=== PATIENT | male | born 1980 | race Caucasian/White ===

== ENCOUNTER 2023-05-23 15:37 | Inpatient (IN) | payer MEDICAID, SELFPAY ==
[2023-05-23 15:44] VITALS: BP 153/83; PULSE 69; RESP 18; TEMP 37.2; O2SAT 96; BMI 28.0
--- NOTE | 2023-05-23 15:45 | ED_ITS ---
HPI - General Adult General Chief complaint: Psychiatric Symptoms Stated complaint: suicidal thoughts Time Seen by Provider: 05/23/23 16:44 Source: patient Mode of arrival: ambulatory Limitations: no limitations History of Present Illness HPI narrative: 42-year-old male with a history of depression, anxiety, bipolar 2, PTSD, ADHD who presents emergency department for evaluation of suicidal ideation and the feeling that he wants to hurt other people. The patient states that he has a history of fentanyl and heroin use disorder, he states that he was using these drugs IV , intranasally and occasionally smoking them. He states that he got into a treatment program 03/27/2023 and since that time he has not used any drugs or drank alcohol. He states that he was placed on psychiatric medications after got out of the treatment program. Patient states that he was feeling suicidal and he was admitted to a treatment program and [place] from 05/14/2023 until 05/19/2023. He states the medications that he was placed on are not making him feel better and he still feels suicidal. He states that he has not homicidal but he feels like he is angry and he wants to hurt other people. He states he does not have a suicide plan or plan to hurt specific people but states that he has gotten in a lot of fights and he feels like he needs to get into another fight. He states he does feel congested but he denied fever, chills, sore throat, cough, chest pain or shortness of breath. Related Data Allergies Allergy/AdvReac Type Severity Reaction Status Date / Time bee pollen [bee stings] Allergy Hives Verified 05/23/23 15:44 promethazine [From Phenergan] AdvReac Seizure Verified 05/23/23 15:44 Review of Systems 2 Review of Systems: Yes all other systems are reviewed and are negative [facility] Past Medical History [facility] Narrative: Social history: He states he is currently living in [place] and a a[facility] based treatment program for his addiction. He does smoke cigarettes. He denies alcohol and drug use since 03/22/2023. Social History Social History Advance Directives: No Advance Directives Information Provided: Yes Healthcare Proxy: No Guardian: No Physical Exam ED Vital Signs: Vital Signs - 24 hr 05/23/23 15:44 05/23/23 20:00 05/23/23 23:46 Temperature 98.9 F 97.9 F Pulse Rate 69 72 62 Respiratory Rate 18 18 20 Blood Pressure 153/83 H 148/88 H 114/65 Pulse Oximetry 96 98 98 Oxygen Delivery Method Room Air Room Air 05/24/23 06:06 Temperature Pulse Rate 64 Respiratory Rate 16 Blood Pressure 111/56 L Pulse Oximetry 98 Oxygen Delivery Method Room Air BMI result Body Mass Index 28.0 Vital signs did reveal an elevated blood pressure of 153/83 Exam General: Awake, alert in no distress Head: Normocephalic, atraumatic EENT: PERRL, Lids normal, sclera normal, conjunctiva normal, nose normal , ears normal, throat without erythema or exudates Neck: Supple, no adenopathy Lung: breath sounds symmetric, no wheezing, rales or rhonchi Chest: symmetric movement, nontender Heart: regular rate and rhythm, normal S1, S2 no murmurs or rubs Abdomen: soft, non-tender, nondistended, normal bowel sounds Back: no vertebral tenderness, no CVAT Extremities: no deformities, moves all extremities symmetrically Neuro: Awake, alert, oriented, normal speech, cranial nerves intact, moves all extremities symmetrically Psych: Pleasant, cooperative, anxious Course Course Course Narrative: RME: 42 yold male presents to the ED feeling suicidal. Patient states taking his psych meds. labs care team ordered. Care team ordered Reevaluation(s) Reevaluation #1: Continue physician observation, VSS, no events overnight, care team evaluation is appreciated and bed search is underway, we will keep patient under section 12. Time: 00:25 Medications Administered Discontinued Medications Generic Name Dose Route Start Last Admin Trade Name Georgiana PRN Reason Stop Dose Admin Ibuprofen 400 mg 05/23/23 18:07 05/23/23 18:17 Ibuprofen 400 Mg Tablet PO 05/23/23 18:08 400 mg ONCE ONE Administration Ibuprofen 600 mg 05/24/23 00:25 05/24/23 00:37 Ibuprofen 600 Mg Tablet PO 05/24/23 00:26 600 mg ONCE ONE Administration Lorazepam 2 mg 05/23/23 17:14 05/23/23 18:03 Lorazepam 1 Mg Tablet PO 05/23/23 17:15 2 mg ONCE STA Administration Lorazepam 2 mg 05/24/23 00:25 05/24/23 00:37 Lorazepam 1 Mg Tablet PO 05/24/23 00:26 2 mg ONCE ONE Administration Trazodone HCl 100 mg 05/24/23 00:25 05/24/23 00:37 Trazodone Hcl 100 Mg Tablet PO 05/24/23 00:26 100 mg ONCE ONE Administration Medical Decision Making Medical Decision Making MDM Narrative: 42-year-old male with a history of depression, anxiety, bipolar 2, PTSD, ADHD who presents emergency department for evaluation of suicidal ideation and the feeling that he wants to hurt other people. Patient was recently hospitalized from 05/14 until 05/19/2023 and [place] for suicidal ideation. He states that since being discharged, he has not been feeling well on his new medications and he is still suicidal and has a desire to get into a fight and hurt people. Patient denies any drug use or alcohol use. He states he has been congested but otherwise has no other symptoms. Exam was unremarkable. Following evaluation was ordered: CBC, CMP, COVID 19, drug screen urine, ethanol level, urinalysis. Patient was treated with the following: One-to-one observation, Ativan 2 mg orally Differential diagnosis: Suicidal ideation, homicidal ideation, depression, anxiety, electrolyte abnormalities, anemia 23:06 Start physician observation: My independent interpretation patient's laboratory evaluation is as follows: WBC low 4500, normocytic anemia with an H&H of 12.7 and 38.1. Glucose elevated 155. Urinalysis negative. Ethanol below detectable limits. Urine tox screen negative. COVID-19 was negative. Patient is medically cleared for care team evaluation. The patient will be kept in physician observation until disposition can be determined by care team or until his symptoms improve over time. At the end of my shift, patient's care was turned over to my colleague, Dr. Barreto. Admission/Observation Consideration of admission/observation: Escalation of care including admission/observation considered Lab Data 05/23/23 17:33 05/23/23 17:33 Labs: Lab Results 05/23/23 05/23/23 Range/Units 17:33 17:37 WBC 4.5 L (4.8-10.8) X10*3/uL RBC 4.42 L (4.60-5.80) X10*6/uL Hgb 12.7 L (14.0-18.0) g/dl Hct 38.1 L (42.0-52.0) % MCV 86.2 (80.0-98.0) fL MCH 28.7 (27.0-33.0) pg MCHC 33.3 (31.0-36.0) g/dl RDW 12.4 (11.0-16.0) % Plt Count 208 (160-400) X10*3/uL MPV 9.7 (9.4-12.4) fL Immature Gran % (Auto) 0.2 (0.0-0.4) % Neut % (Auto) 46.0 (45-73) % Lymph % (Auto) 40.9 H (20-40) % [place] % (Auto) 8.2 (2-11) % Eos % (Auto) 3.8 (0-4) % Baso % (Auto) 0.9 (0-2) % Lymph # (Auto) 1.9 (1.2-4.9) X10*3/uL [place] # (Auto) 0.4 (0.1-1.2) X10*3/uL Eos # (Auto) 0.2 (0.0-0.4) X10*3/uL Baso # (Auto) 0.0 (0.0-0.2) X10*3/uL Abs Immat Gran (auto) 0.01 (0.00-0.03) X10*3/uL Absolute Neuts (auto) 2.1 (2.0-8.3) x10*3/uL Absolute Nucleated RBC 0.000 (0.0-0.012) X10*3/uL Nucleated RBC % (auto) 0.0 (0.0-0.2) /100WBC Sodium 142 (135-145) mmol/L Potassium 3.5 (3.3-5.1) mmol/L Chloride 103 (96-108) mmol/L Carbon Dioxide 27 (22-29) mmol/L Anion Gap 16 (12-20) BUN 10 (9-16) mg/dL Creatinine 0.88 (0.5-1.4) mg/dL Estim Creat Clear Calc 121.3 Estimated GFR > 60 Random Glucose 155 H (60-115) mg/dL Calcium 9.4 (8.4-10.2) mg/dL Total Bilirubin 0.6 (0.0-1.0) mg/dL AST 25 (5-37) U/L ALT 29 (0-40) U/L Alkaline Phosphatase 67 (39-117) U/L Total Protein 6.5 (6.5-8.0) g/dL Albumin 4.2 (3.5-5.0) g/dL Urine Color Yellow Urine Appearance Clear Urine pH 6.0 (5.0-9.0) Ur Specific [place] 1.015 (1.005-1.025) Urine Protein Negative (Neg-Trace) mg/dL Urine Glucose (UA) Negative (Negative) mg/dL Urine Ketones Negative (Negative) mg/dL Urine Blood Negative (Negative) Urine Nitrite Negative (Negative) Ur Leukocyte Esterase Negative (Negative) Urine Opiates Screen Not Detected (Not Detect) Urine Fentanyl Screen Not Detected (Not Detect) Ur Barbiturates Screen Not Detected (Not Detect) Ur Phencyclidine Scrn Not Detected (Not Detect) Ur Amphetamines Screen Not Detected (Not Detect) U Benzodiazepines Scrn Not Detected (Not Detect) Urine Cocaine Screen Not Detected (Not Detect) U Marijuana (THC) Screen Not Detected (Not Detect) Ethyl Alcohol < 10 mg/dL COVID-19 ([facility]) Negative (Negative) COVID-19 Clin Com See Note Chronic Conditions Patient?s care impacted by: Other (Depression, anxiety, PTSD) Discharge Plan Discharge Clinical Impression: Suicidal ideation Patient Disposition: Still a Patient Interventions: [place]-Suicide Risk Severity Scale Last Done: 05/23/23 23:47
[2023-05-23 17:46] LABS: MANUAL DIFF FLAG NO
[2023-05-23 17:49] LABS: Basophils Percent Auto 0.9 % (0-2); Eosinophils Absolute Auto 0.2 X10*3/uL (0.0-0.4); Eosinophils Percent Auto 3.8 % (0-4); Hematocrit 38.1 % (42.0-52.0); Hemoglobin 12.7 g/dl (14.0-18.0); Imm Gran Abs Auto 0.01 X10*3/uL (0.00-0.03); Imm Gran Pct Auto 0.2 % (0.0-0.4); Lymphocytes Absolute Auto 1.9 X10*3/uL (1.2-4.9); Lymphocytes Percent Auto 40.9 % (20-40); Mean Corpuscular HGB Conc 33.3 g/dl (31.0-36.0); Mean Corpuscular Hemoglobin 28.7 pg (27.0-33.0); Mean Corpuscular Volume 86.2 fL (80.0-98.0); Mean Platelet Volume 9.7 fL (9.4-12.4); Monocytes Absolute Auto 0.4 X10*3/uL (0.1-1.2); Monocytes Percent Auto 8.2 % (2-11); Neutrophils Absolute Auto 2.1 x10*3/uL (2.0-8.3); Platelet Count 208 X10*3/uL (160-400); Red Blood Count 4.42 X10*6/uL (4.60-5.80); Red Cell Distribution Width 12.4 % (11.0-16.0); White Blood Count 4.5 X10*3/uL (4.8-10.8)
[2023-05-23 18:02] LABS: COVID-19 Test Negative (Negative); IDNOW Serial# 9DB6401D
[2023-05-23] MEDS: LORazepam 1 MG TABLET 2 MG PO (18:03)
[2023-05-23 18:07] LABS: Alanine Aminotransferase 29 U/L (0-40); Albumin Level 4.2 g/dL (3.5-5.0); Alkaline Phosphatase 67 U/L (39-117); Anion Gap 16 (12-20); Aspartate Amino Transferase 25 U/L (5-37); Bilirubin Total 0.6 mg/dL (0.0-1.0); Blood Urea Nitrogen 10 mg/dL (9-16); Calcium 9.4 mg/dL (8.4-10.2); Carbon Dioxide 27 mmol/L (22-29); Chloride 103 mmol/L (96-108); Creatinine Clr Calc Pharmacy 121.3; Estimated Glomerular Filt Rate > 60; Ethanol < 10 mg/dL; Glucose Random 155 mg/dL (60-115); Potassium 3.5 mmol/L (3.3-5.1); Sodium 142 mmol/L (135-145); Total Protein 6.5 g/dL (6.5-8.0)
[2023-05-23] MEDS: Ibuprofen 400 MG TABLET PO (18:17)
--- NOTE | 2023-05-23 18:19 | PC.NURSE ---
pt medicated per MAR for 6/10 back pain. pt providing urine sample
[2023-05-23 18:30] LABS: Appearance Urine Clear; Color Urine Yellow; Glucose Urine UA Negative (Negative); Leukocyte Esterase Urine Negative (Negative); Nitrite Urine Negative (Negative); Specific Gravity - Urine 1.015 (1.005-1.025); Urine Blood Negative (Negative); Urine Ketones Negative (Negative); Urine Protein Negative (Neg-Trace)
[2023-05-23 18:37] LABS: Amphetamine Screen Urine Not Detected (Not Detect); Barbiturates, Urine Not Detected (Not Detect); Benzodiazepines Screen Urine Not Detected (Not Detect); Cannabinoid Screen Urine Not Detected (Not Detect); Cocaine Screen Urine Not Detected (Not Detect); Fentanyl, urine Not Detected (Not Detect); Opiate Screen Urine Not Detected (Not Detect); Phencyclidine Screen Urine Not Detected (Not Detect)
[2023-05-23 20:00] VITALS: BP 148/88; PULSE 72; RESP 18; O2SAT 98
--- NOTE | 2023-05-23 20:05 | PC.NURSE ---
Assumed care of pt. Pt lying on stretcher, eyes closed, no acute distress noted. Sitter at bedside for safety. PLan for CARE team evaluation.
[2023-05-23 23:46] VITALS: BP 114/65; PULSE 62; RESP 20; TEMP 36.6; O2SAT 98
[2023-05-24] MEDS: traZODone HCL 100 MG TABLET PO (00:37)
[2023-05-24] MEDS: Ibuprofen 600 MG TABLET PO (00:37)
[2023-05-24] MEDS: LORazepam 1 MG TABLET 2 MG PO ×2 (00:37→14:31)
[2023-05-24 06:06] VITALS: BP 111/56; PULSE 64; RESP 16; O2SAT 98
[2023-05-24 11:53] VITALS: BP 112/57; PULSE 82; RESP 18; TEMP 36.8; O2SAT 96
--- NOTE | 2023-05-24 12:14 | MHC.CARE ---
RAD Team conducted statewide bedsearch, referral being reviewed by Steve Goldstein [place], and [facility]. RAD team to f/u with facilities to see outcome
--- NOTE | 2023-05-24 12:31 | MHC.CARE ---
Pt accepted to [facility] for 2pm today Accepting Doctor is Dr Laurie Cancino Address is [address] [place] [address] Rd, [facility] [id number]
--- NOTE | 2023-05-24 12:34 | PHA.MEDREC ---
Pharmacy Consult ? Medication Reconciliation Pharmacy has completed the medication reconciliation. Spoke to patient, he has the list of meds from treatment facility in [place], said the last dose was probably on 05/19/23.
[2023-05-24] MEDS: OLANZapine 5 MG TABLET PO (14:03)
[2023-05-24] MEDS: Gabapentin 600 MG TABLET PO ×2 (14:03→19:27)
[2023-05-24] MEDS: traZODone HCL 25 MG HALFTAB PO (14:03)
[2023-05-24] MEDS: Nicotine 14 MG PATCH.TD24 TRANSDERMA (14:03)
[2023-05-24] MEDS: Buprenorphine/Naloxone 12/3 mg FILM 1 FILM SUBLINGUAL (14:54)
--- NOTE | 2023-05-24 15:27 | PC.NURSE ---
Patient has been calm and cooperative while in the pod, no apparent distress noted. Pt does endorse SI without a plan at this time. Offers no complaints to this RN. Medications ordered by MD Cody and administered per MAR
[2023-05-24 17:38] VITALS: PULSE 69; RESP 16; O2SAT 96
--- NOTE | 2023-05-24 17:39 | PC.NURSE ---
Patient observer called this RN over to check on pt, patient appears to be sleeping with eyes open, respirations are equal and unlabored, patient is slightly difficult to arouse but did wake up when this RN moved his foot around. Pt immediately fell back asleep. Vital signs are within normal limits without issue, MD Kennedy is aware and has not come to see patient at this time. Pt received Zyprexa and Ativan earlier in the day without issue. Pt was alert and oriented x4, awake, speaking in clear full sentences prior to medications
[2023-05-24 19:45] VITALS: BP 128/66; PULSE 62; RESP 18; TEMP 36.4; O2SAT 99
--- NOTE | 2023-05-24 22:46 | MHC.CARE ---
RAD Team conducted statewide bedsearch, referral being reviewed by Gurjit Goldstein [place], [facility] and [facility]. RAD team to f/u with facilities to see outcome
[2023-05-25] MEDS: hydrOXYzine HCL 25 MG TABLET PO ×2 (01:08→14:16)
[2023-05-25 05:16] VITALS: BP 124/70; PULSE 75; RESP 18; TEMP 36.5; O2SAT 99
[2023-05-25] MEDS: Omeprazole 20 MG CAPSULE.DR PO (05:39)
--- NOTE | 2023-05-25 06:45 | PC.NURSE ---
Patient slept through the night, no distress observed/reported, no behavior concerns, disposition per care team is section 12 inpatient bed search, medication compliant, will continue to monitor.
[2023-05-25] MEDS: Gabapentin 600 MG TABLET PO ×3 (07:47→20:55)
[2023-05-25] MEDS: OLANZapine 5 MG TABLET PO (07:47)
[2023-05-25] MEDS: Buprenorphine/Naloxone 12/3 mg FILM 1 FILM SUBLINGUAL ×2 (07:47→17:20)
[2023-05-25] MEDS: Nicotine 14 MG PATCH.TD24 TRANSDERMA (07:47)
--- NOTE | 2023-05-25 08:01 | ECG_ITS ---
Test Reason : qt interval Blood Pressure : / mmHG Vent. Rate : 068 BPM Atrial Rate : 068 BPM P-R Int : 156 ms QRS Dur : 098 ms QT Int : 396 ms P-R-T Axes : 044 026 017 degrees QTc Int : 421 ms Normal sinus rhythm Incomplete right bundle branch block Borderline ECG No previous ECGs available Referred By: Skylar Barreto Electronically Signed By:HALEY ARGUETA MD
[2023-05-25 08:32] LABS: COVID-19 Test Negative (Negative); IDNOW Serial# 08D9AD1C
--- NOTE | 2023-05-25 10:01 | PC.NURSE ---
pleasant and cooperative, ate breakfast, did some stretching and exercises in his room, medicated as ordered
[2023-05-25] MEDS: Baclofen 10 MG TABLET PO ×2 (14:16→20:55)
[2023-05-25] MEDS: Acetaminophen 325 MG TABLET 650 MG PO (14:16)
[2023-05-25 14:43] VITALS: BP 123/86; PULSE 71; RESP 18; TEMP 36.1; O2SAT 96
[2023-05-25 14:56] VITALS: BMI 28.2
--- NOTE | 2023-05-25 16:25 | PC.ADMIT ---
Pt is a 42 yr old , Nepali speaking male who arrived on M3 from the ED POD on 05/25/23 at 1440 via wheelchair. He was brought in to the ED due to suicidal ideation and increased depression. He states, per the intake, that the precipitant was due to new medications he was put on after leaving [facility]. He was cooperative but had an irritable edge stating he was lied to by Care Team as to the process and transition from ED to [facility]. He was otherwise calm and cooperative with skin check by DELANEY and Chance BRADFORD. He presents as flat and irritable about admission process but otherwise pleasant. He appears to have some suspicion and confusion regarding medications and other people on the unit stating I feel unsafe here, there are too many people and I don't want a roommate. He otherwise denied current SI/HI/AVH and reports being able to seek out staff if these thoughts shall occur. He reports increased anxiety related to being admitted. He signed a CV and immediately signed a 3 day. He reports recent weight loss of 50 lbs without trying and poor appetite due to depression. He also reports poor sleep without cause. His tox screen was negative for all substances but has a h/o IVDU including crack and fentanyl, which he is on suboxone maintenance for. He reports chronic back pain with relief from Baclofen and Ibuprofen. He was placed on 15 minute checks for safety.
[2023-05-25 20:00] VITALS: BP 141/65; PULSE 74; RESP 16; TEMP 36.5; O2SAT 97
[2023-05-25] MEDS: OLANZapine 10 MG TABLET PO (20:54)
[2023-05-25] MEDS: traZODone HCL 50 MG TABLET PO (20:55)
[2023-05-25 21:25] VITALS: BP 130/84
[2023-05-26 07:10] VITALS: BP 120/77; PULSE 70; TEMP 36.4; O2SAT 97
[2023-05-26] MEDS: Nicotine 14 MG PATCH.TD24 TRANSDERMA (08:24)
[2023-05-26] MEDS: Gabapentin 600 MG TABLET PO ×3 (08:25→21:17)
--- NOTE | 2023-05-26 08:25 | P.HPPS_ITS ---
HPI Date of Service: 05/26/23 Chief Complaint: SI Sources of Information: patient interviewed, chart reviewed and crisis/core team assessment reviewed HPI Subjective Notes: Del Cid Warning and Conditional Voluntary Narrative: Mr. Sarmiento is a 42 year-old male with hx of substance use and psychosis. He initially presented from dual dx [facility] reporting increase depression and suicidal ideation. Utox was negative. On the unit, pt presented as more hypervigilant irritable that appear to be related to underlying paranoid delusions. Pt reports he does not feel safe here, feels this unit is too open and anyone can come in. He does not know if he can trust people here and the medications, although same names, look different. He reports feeling weird which he also suspects is because of either the medications or food that he has been given here. He signed a 3 day notice. He denies SI/HI. He reports he feels comfortable returning to the program if they do accept him back. He has been there just a few days. Past Psychiatric History: Inpt: pt reports many in the past. He was recently discharged from [place], [place] on 05/19/23. OP: none Past trials: olanzapine, vraylar Medical Evaluation Reviewed: Yes [facility] Social History: not working. He is originally from [place] Substance History: opioid use on and off for several years. He is currently on suboxone. He reports he has not used this month. Trauma History: did not want to talk about it Diagnostics Vital Signs (24Hr): Vital Signs - 24 hr 05/25/23 14:43 05/25/23 20:00 05/25/23 21:25 Temperature 97.0 F 97.7 F Pulse Rate 71 74 Respiratory Rate 18 16 Blood Pressure 123/86 141/65 H 130/84 Pulse Oximetry 96 97 Oxygen Delivery Method Room Air Room Air 05/26/23 07:10 Temperature 97.5 F Pulse Rate 70 Respiratory Rate Blood Pressure 120/77 Pulse Oximetry 97 Oxygen Delivery Method Room Air BMI result Body Mass Index 28.2 Labs 05/23/23 17:33 05/26/23 08:21 Labs: Laboratory Results - last 48 hr 05/25/23 08:11 COVID-19 ([facility]) Negative COVID-19 Clin Com See Note Meds/Allergies Meds Home Medications Medication Instructions Recorded Confirmed Type baclofen 10 mg tablet 10 mg PO BID PRN Muscle Spasm 05/24/23 05/24/23 History buprenorphine 12 mg-naloxone 3 mg 1 film buccal BID 05/24/23 05/24/23 History sublingual film (Suboxone) cholecalciferol (vitamin D3) 25 25 mcg PO DAILY 05/24/23 05/24/23 History mcg (1,000 unit) tablet gabapentin 600 mg tablet 600 mg PO TID 05/24/23 05/24/23 History hydroxyzine HCl 25 mg tablet 25 mg PO BID PRN Anxiety 05/24/23 05/24/23 History ibuprofen 800 mg tablet 800 mg PO TID PRN Pain 05/24/23 05/24/23 History multivitamin 1 tab PO DAILY 05/24/23 05/24/23 History nicotine 14 mg/24 hr daily 1 patch transdermal DAILY 05/24/23 05/24/23 History transdermal patch olanzapine 5 mg tablet 5 mg PO DAILY 05/24/23 05/24/23 History pantoprazole 40 mg tablet,delayed 40 mg PO DAILY 05/24/23 05/24/23 History release trazodone 50 mg tablet 25 mg PO BEDTIME 05/24/23 05/25/23 History Allergies Allergies Allergy/AdvReac Type Severity Reaction Status Date / Time bee pollen [bee stings] Allergy Hives Verified 05/23/23 15:44 promethazine [From Phenergan] AdvReac Seizure Verified 05/23/23 15:44 Mental Status Exam Mental Status Exam Narrative: Appearance: wearing casual clothing, good hygiene, in NAD Behavior: guarded and suspicious of this narrative writer Psychomotor: no agitation or retardation noted Speech: clear, normal rate/rhythm/volume, spontaneous TP: linear TC: suspicious, not feeling safe here on this unit Mood: good Affect: hypervigilant, paranoid SI: denies HI: denies VH/AH: appears internally preoccupied although he denies Delusions: paranoid delusions Insight/judgment: poor x 2. Memory/cog: alert, oriented x 3. Assessment & Plan Assessment & Plan (1) Psychosis: Status: Acute Code(s): F29 - Unspecified psychosis not due to a substance or known physiological condition (2) Opioid use disorder, moderate, in early remission, on maintenance therapy, dependence: Status: Acute Code(s): F11.21 - Opioid dependence, in remission Plan Mr. Sarmiento is a 42 year-old male with hx of substance use disorder in early remission, who is not known to our unit. He initially presented from [facility], a dual dx residential treatment program, due to depression and suicidal ideation. As interview goes on, pt is paranoid and hypervigilant. We discussed risks, benefits and alternative treatment options. He is currently on olanzapine, but also reports feeling very sleepy. We discussed lowering gabapentin, given that he is also on suboxone BID and switching to risperidone as it may have less sedation and may be more effective for underlying psychosis and delusions. Collateral information from [facility] where apparently he also presented with psychosis and paranoid delusions. 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 PLAN 1. Admit to M3, CV, 15 minutes checks for safety 2. switch olanzapine to risperidone 2mg po qhs. decrease gabapentin from 600mg po TID to bedtime, adjust as needed. 3. obtain collateral information 4. aftercare planning. Patient educated on: diagnosis, medication risk/benefits and substance abuse Reason for continued inpatient stay Substantial Risk for: inability to function Statement Statement: I have reviewed the history and physical and performed a pertinent examination on my patient. No changes have occurred unless specified. If the History and Physical was not performed prior to admission, the Hospitalist's service will be consulted for completing the admission physical. Time Spent With Patient Time: Total time managing care of this patient today ____ minutes.
[2023-05-26] MEDS: Ibuprofen 600 MG TABLET PO ×2 (08:28→17:34)
[2023-05-26] MEDS: Buprenorphine/Naloxone 12/3 mg FILM 1 FILM SUBLINGUAL ×2 (08:28→17:24)
[2023-05-26] MEDS: Baclofen 10 MG TABLET PO ×2 (08:28→21:42)
[2023-05-26 08:52] LABS: Estimated Average Glucose 105 mg/dL; Hemoglobin A1c % 5.3 % (<6.0)
[2023-05-26 09:10] LABS: Alanine Aminotransferase 29 U/L (0-40); Albumin Level 4.3 g/dL (3.5-5.0); Alkaline Phosphatase 69 U/L (39-117); Anion Gap 13 (12-20); Aspartate Amino Transferase 23 U/L (5-37); Bilirubin Total 0.4 mg/dL (0.0-1.0); Blood Urea Nitrogen 14 mg/dL (9-16); Calcium 9.5 mg/dL (8.4-10.2); Carbon Dioxide 26 mmol/L (22-29); Chloride 106 mmol/L (96-108); Cholesterol 176 mg/dL (<200); Creatinine Clr Calc Pharmacy 125.9; Estimated Glomerular Filt Rate > 60; Glucose Fasting 84 mg/dL (60-99); HDL Cholesterol 61 mg/dL (>40); LDL Cholesterol Calculated 82 mg/dL (<100); Potassium 4.2 mmol/L (3.3-5.1); Sodium 141 mmol/L (135-145); Total Protein 6.9 g/dL (6.5-8.0); Triglycerides 166 mg/dL (<150)
[2023-05-26 09:25] LABS: Thyroid Stimulating Hormone 2.66 uIU/mL (0.32-4.0)
[2023-05-26 09:44] LABS: Vitamin B12 715 pg/mL (200-900)
--- NOTE | 2023-05-26 10:04 | PC.NURSE ---
Pt refused Flu Vaccine
--- NOTE | 2023-05-26 13:54 | MHC.CLN ---
NUTRITION CONSULT FOR 50# WEIGHT LOSS. REPORTS THAT WEIGHT LOSS DUE TO ADDICTION. HAS BEEN EATING WELL SINCE MARCH. REPORTS THAT EATING WELL HERE. NO NEW NUTRITION INTERVENTIONS.
[2023-05-26 21:00] VITALS: BP 147/77; PULSE 71; RESP 16; TEMP 36.5; O2SAT 97
[2023-05-26] MEDS: risperiDONE 2 MG TABLET PO (21:18)
[2023-05-26] MEDS: traZODone HCL 50 MG TABLET PO (21:42)
[2023-05-27 07:15] VITALS: BP 106/65; PULSE 59; RESP 14; TEMP 36.1; O2SAT 97
[2023-05-27] MEDS: Nicotine 14 MG PATCH.TD24 TRANSDERMA (08:41)
[2023-05-27] MEDS: Buprenorphine/Naloxone 12/3 mg FILM 1 FILM SUBLINGUAL ×2 (08:41→17:20)
--- NOTE | 2023-05-27 12:30 | HO.PSYCHPN ---
Subjective Subjective Date of Service: 05/27/23 Reason For Visit: SI Subjective Notes: Conditional Voluntary Interim History: The nursing staff reported the patient signed a 3 day notice reports that he is anxiety and depression is up and down. On interview the patient denies new symptoms, compliant with current treatment. Mental Status Exam Mental Status Exam Patient Appearance: Well Grooomed and Appropriate Patient Orientation: Person and Situation Level of Consciousness: Awake Patient Behavior: Guarded and Passive Mood Description: Withdrawn Affect Description: Constricted Ability to Follow Directions: Good Speech Pattern: Clear Hallucinations: None Delusions: Not Present Thought Process: Linear Thought Content: positive for [employer] and positive for Poverty of Content Judgement: Fair Diagnostics Vital Signs (24Hr): Vital Signs - 24 hr 05/26/23 21:00 05/27/23 07:15 Temperature 97.7 F 97.0 F Pulse Rate 71 59 Respiratory Rate 16 14 Blood Pressure 147/77 H 106/65 Pulse Oximetry 97 97 Oxygen Delivery Method Room Air Room Air BMI result Body Mass Index 28.2 Labs 05/23/23 17:33 05/26/23 08:21 Labs: Laboratory Results - last 48 hr 05/26/23 08:21 Sodium 141 Potassium 4.2 Chloride 106 Carbon Dioxide 26 Anion Gap 13 BUN 14 Creatinine 0.85 Estim Creat Clear Calc 125.9 Estimated GFR > 60 Fasting Glucose 84 Estimat Average Glucose 105 Hemoglobin A1c % 5.3 Calcium 9.5 Total Bilirubin 0.4 AST 23 ALT 29 Alkaline Phosphatase 69 Total Protein 6.9 Albumin 4.3 Triglycerides 166 H Cholesterol 176 LDL Cholesterol, Calc 82 HDL Cholesterol 61 Vitamin B12 715 TSH 2.66 Medications Medications Current Medications Acetaminophen (Acetaminophen 325 Mg Tablet) 650 mg PO Q6H PRN PRN Reason: Headache/Pain Mild Scale (1-3) Last Admin: 05/25/23 14:16 Dose: 650 mg Al Hydroxide/Mg Hydroxide (Magnesium Hydrox/Alum Hydrox 30 Ml Oral.Susp) 30 ml PO Q6H PRN PRN Reason: Heartburn/Nausea Baclofen (Baclofen 10 Mg Tablet) 10 mg PO BID PRN PRN Reason: Muscle Spasm Last Admin: 05/26/23 21:42 Dose: 10 mg Buprenorphine/Naloxone (Buprenorphine/Naloxone 12/3 Mg Film) 1 film SUBLINGUAL BID@0800,1700 [facility] Last Admin: 05/27/23 08:41 Dose: 1 film Gabapentin (Gabapentin 600 Mg Tablet) 600 mg PO BEDTIME [facility] Last Admin: 05/26/23 21:17 Dose: 600 mg Hydroxyzine HCl (Hydroxyzine Hcl 25 Mg Tablet) 25 mg PO BID PRN PRN Reason: Anxiety Last Admin: 05/25/23 14:16 Dose: 25 mg Ibuprofen (Ibuprofen 600 Mg Tablet) 600 mg PO Q6H PRN PRN Reason: moderate, pain Last Admin: 05/26/23 17:34 Dose: 600 mg Magnesium Hydroxide (Milk Of Magnesia 30 Ml Oral.Susp) 30 ml PO DAILY PRN PRN Reason: Constipation Nicotine (Nicotine 14 Mg Patch.Td24) 14 mg TRANSDERMA DAILY [facility] Last Admin: 05/27/23 08:41 Dose: 14 mg Olanzapine (Olanzapine Odt 10 Mg Tab.Rapdis) 10 mg TRANSLINGU Q6H PRN PRN Reason: agitation Risperidone (Risperidone 2 Mg Tablet) 2 mg PO BEDTIME [facility] Last Admin: 05/26/23 21:18 Dose: 2 mg Trazodone HCl (Trazodone Hcl 50 Mg Tablet) 50 mg PO BEDTIME PRN PRN Reason: Insomnia Last Admin: 05/26/23 21:42 Dose: 50 mg Allergies Allergies Allergy/AdvReac Type Severity Reaction Status Date / Time bee pollen [bee stings] Allergy Hives Verified 05/23/23 15:44 promethazine [From Phenergan] AdvReac Seizure Verified 05/23/23 15:44 Assessment & Plan Assessment & Plan (1) Psychosis: Status: Acute Code(s): F29 - Unspecified psychosis not due to a substance or known physiological condition (2) Opioid use disorder, moderate, in early remission, on maintenance therapy, dependence: Status: Acute Code(s): F11.21 - Opioid dependence, in remission Plan Mr. Sarmiento is a 42 year-old male with hx of substance use disorder in early remission, who is not known to our unit. [facility], a dual [facility] residential treatment program, due to depression and suicidal ideation. As interview goes on, pt is paranoid and hypervigilant. We discussed risks, benefits and alternative treatment options. He is currently on olanzapine, but also reports feeling very sleepy. We discussed lowering gabapentin, given that he is also on suboxone BID and switching to risperidone as it may have less sedation and may be more effective for underlying psychosis and delusions. Collateral information from [facility] where apparently he also presented with psychosis and paranoid delusions. 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 PLAN 1. Admit to M3, CV, 15 minutes checks for safety 2. switch olanzapine to risperidone 2mg po qhs. decrease gabapentin from 600mg po TID to bedtime, adjust as needed. 3. obtain collateral information 4. aftercare planning. Reason for continued inpatient stay Substantial Risk for: inability to function, rapid decompensation and med/psych decompensation Time Spent With Patient Time: Total time managing care of this patient today __20__ minutes.
[2023-05-27] MEDS: hydrOXYzine HCL 25 MG TABLET PO (14:10)
[2023-05-27] MEDS: Baclofen 10 MG TABLET PO (14:10)
[2023-05-27] MEDS: OLANZapine ODT 10 MG TAB.RAPDIS TRANSLINGU (17:24)
[2023-05-27] MEDS: Ibuprofen 600 MG TABLET PO (17:24)
[2023-05-27] MEDS: Gabapentin 600 MG TABLET PO (21:43)
[2023-05-27] MEDS: traZODone HCL 50 MG TABLET PO (21:43)
[2023-05-27] MEDS: risperiDONE 2 MG TABLET PO (21:43)
[2023-05-27 21:44] VITALS: BP 123/75; PULSE 65; RESP 14; TEMP 36.3; O2SAT 97
[2023-05-28 07:40] VITALS: BP 102/55; PULSE 56; RESP 14; TEMP 36.2; O2SAT 97
[2023-05-28] MEDS: Buprenorphine/Naloxone 12/3 mg FILM 1 FILM SUBLINGUAL ×2 (08:21→16:39)
[2023-05-28] MEDS: Nicotine 14 MG PATCH.TD24 TRANSDERMA (08:21)
[2023-05-28] MEDS: Ibuprofen 600 MG TABLET PO (08:37)
--- NOTE | 2023-05-28 15:26 | P.PNPSI_ITS ---
Subjective Subjective Date of Service: 05/28/23 Reason For Visit: SI Subjective Notes: Conditional Voluntary and 3 Day Interim History: The nursing staff reported the patient signed a 3 day notice he reports some anxiety. His mood had been better. He has been talking about the possibility of different treatment options. On interview the patient denies new symptoms, he is willing to work as an outpatient Mental Status Exam Mental Status Exam Patient Appearance: Well Grooomed and Appropriate Patient Orientation: Person, Place, Time and Situation Level of Consciousness: Awake and Appropriate Mood Description: Calm Affect Description: Constricted Patient Cognition Impaired: Yes Ability to Follow Directions: Good Speech Pattern: Clear Hallucinations: None Delusions: Not Present Thought Process: Distracted and Linear Thought Content: positive for [place] and positive for Circumstantial Judgement: Fair Diagnostics Vital Signs (24Hr): Vital Signs - 24 hr 05/27/23 21:44 05/28/23 07:40 Temperature 97.3 F 97.1 F Pulse Rate 65 56 Respiratory Rate 14 14 Blood Pressure 123/75 102/55 L Pulse Oximetry 97 97 Oxygen Delivery Method Room Air Room Air BMI result Body Mass Index 28.2 Labs 05/23/23 17:33 05/26/23 08:21 Medications Medications Current Medications Acetaminophen (Acetaminophen 325 Mg Tablet) 650 mg PO Q6H PRN PRN Reason: Headache/Pain Mild Scale (1-3) Last Admin: 05/25/23 14:16 Dose: 650 mg Al Hydroxide/Mg Hydroxide (Magnesium Hydrox/Alum Hydrox 30 Ml Oral.Susp) 30 ml PO Q6H PRN PRN Reason: Heartburn/Nausea Baclofen (Baclofen 10 Mg Tablet) 10 mg PO BID PRN PRN Reason: Muscle Spasm Last Admin: 05/27/23 14:10 Dose: 10 mg Buprenorphine/Naloxone (Buprenorphine/Naloxone 12/3 Mg Film) 1 film SUBLINGUAL BID@0800,1700 [facility] Last Admin: 05/28/23 08:21 Dose: 1 film Gabapentin (Gabapentin 600 Mg Tablet) 600 mg PO BEDTIME [facility] Last Admin: 05/27/23 21:43 Dose: 600 mg Hydroxyzine HCl (Hydroxyzine Hcl 25 Mg Tablet) 25 mg PO BID PRN PRN Reason: Anxiety Last Admin: 05/27/23 14:10 Dose: 25 mg Ibuprofen (Ibuprofen 600 Mg Tablet) 600 mg PO Q6H PRN PRN Reason: moderate, pain Last Admin: 05/28/23 08:37 Dose: 600 mg Magnesium Hydroxide (Milk Of Magnesia 30 Ml Oral.Susp) 30 ml PO DAILY PRN PRN Reason: Constipation Nicotine (Nicotine 14 Mg Patch.Td24) 14 mg TRANSDERMA DAILY [facility] Last Admin: 05/28/23 08:21 Dose: 14 mg Olanzapine (Olanzapine Odt 10 Mg Tab.Rapdis) 10 mg TRANSLINGU Q6H PRN PRN Reason: agitation Last Admin: 05/27/23 17:24 Dose: 10 mg Risperidone (Risperidone 2 Mg Tablet) 2 mg PO BEDTIME [facility] Last Admin: 05/27/23 21:43 Dose: 2 mg Trazodone HCl (Trazodone Hcl 50 Mg Tablet) 50 mg PO BEDTIME PRN PRN Reason: Insomnia Last Admin: 05/27/23 21:43 Dose: 50 mg Allergies Allergies Allergy/AdvReac Type Severity Reaction Status Date / Time bee pollen [bee stings] Allergy Hives Verified 05/23/23 15:44 promethazine [From Phenergan] AdvReac Seizure Verified 05/23/23 15:44 Assessment & Plan Assessment & Plan (1) Psychosis: Status: Acute Code(s): F29 - Unspecified psychosis not due to a substance or known physiological condition (2) Opioid use disorder, moderate, in early remission, on maintenance therapy, dependence: Status: Acute Code(s): F11.21 - Opioid dependence, in remission Plan Mr. Sarmiento is a 42 year-old male with hx of substance use disorder in early remission, who is not known to our unit. He [facility] presented from [facility], a dual dx residential treatment program, due to depression and suicidal ideation. As interview goes on, pt is paranoid and hypervigilant. We discussed risks, benefits and alternative treatment options. He is currently on olanzapine, but also reports feeling very sleepy. We discussed lowering gabapentin, given that he is also on suboxone BID and switching to risperidone as it may have less sedation and may be more effective for underlying psychosis and delusions. Collateral information from [facility] where apparently he also presented with psychosis and paranoid delusions. 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 PLAN 1. Admit to M3, CV, 15 minutes checks for safety 2. switch olanzapine to risperidone 2mg po qhs. decrease gabapentin from 600mg po TID to bedtime, adjust as needed. 3. obtain collateral information 4. aftercare planning. Reason for continued inpatient stay Substantial Risk for: inability to function, rapid decompensation and med/psych decompensation Time Spent With Patient Time: Total time managing care of this patient today __20__ minutes.
[2023-05-28 20:12] VITALS: BP 136/73; PULSE 73; TEMP 36.6; O2SAT 97
[2023-05-28] MEDS: Gabapentin 600 MG TABLET PO (20:52)
[2023-05-28] MEDS: hydrOXYzine HCL 25 MG TABLET PO (20:52)
[2023-05-28] MEDS: risperiDONE 2 MG TABLET PO (20:52)
[2023-05-28] MEDS: traZODone HCL 50 MG TABLET PO (20:52)
[2023-05-29 07:18] VITALS: BP 124/64; PULSE 71; RESP 16; TEMP 36.6; O2SAT 96
[2023-05-29] MEDS: Buprenorphine/Naloxone 12/3 mg FILM 1 FILM SUBLINGUAL ×2 (08:17→16:58)
[2023-05-29] MEDS: Nicotine 14 MG PATCH.TD24 TRANSDERMA (08:17)
[2023-05-29] MEDS: Ibuprofen 600 MG TABLET PO (09:41)
[2023-05-29] MEDS: Baclofen 10 MG TABLET PO (09:52)
[2023-05-29] MEDS: hydrOXYzine HCL 25 MG TABLET PO (09:52)
--- NOTE | 2023-05-29 19:19 | P.PNPSI_ITS ---
Subjective Subjective Date of Service: 05/29/23 Reason For Visit: SI Interim History: wants sublocade, would like to speak with addiction service on that issue. would like to streamline regimen, agrees to taper off of gabapentin. 3-day up weds, planning to discharge weds. per staff, denies SI. wants to return to [facility] in [place], [place], at discharge. slept 7 hours. not attending groups. Mental Status Exam Mental Status Exam Narrative: Appearance: wearing casual clothing, good hygiene, in NAD Behavior: no PMA/PMR Speech: clear, normal rate/rhythm/volume, spontaneous TP: linear TC: on delusions or paranoia expressed Mood: good Affect: constricted, normo-intense, non-labile SI: none expressed HI: none expressed VH/AH: none expressed Insight/judgment: fair x 2. Memory/cog: alert, oriented x 3. Diagnostics Vital Signs (24Hr): Vital Signs - 24 hr 05/28/23 20:12 05/29/23 07:18 Temperature 97.9 F 97.8 F Pulse Rate 73 71 Respiratory Rate 16 Blood Pressure 136/73 124/64 Pulse Oximetry 97 96 Oxygen Delivery Method Room Air Room Air BMI result Body Mass Index 28.2 Labs 05/23/23 17:33 05/26/23 08:21 Medications Medications Current Medications Acetaminophen (Acetaminophen 325 Mg Tablet) 650 mg PO Q6H PRN PRN Reason: Headache/Pain Mild Scale (1-3) Last Admin: 05/25/23 14:16 Dose: 650 mg Al Hydroxide/Mg Hydroxide (Magnesium Hydrox/Alum Hydrox 30 Ml Oral.Susp) 30 ml PO Q6H PRN PRN Reason: Heartburn/Nausea Baclofen (Baclofen 10 Mg Tablet) 10 mg PO BID PRN PRN Reason: Muscle Spasm Last Admin: 05/29/23 09:52 Dose: 10 mg Buprenorphine/Naloxone (Buprenorphine/Naloxone 12/3 Mg Film) 1 film SUBLINGUAL BID@0800,1700 [facility] Last Admin: 05/29/23 16:58 Dose: 1 film Gabapentin (Gabapentin 600 Mg Tablet) 400 mg PO BEDTIME [facility] Hydroxyzine HCl (Hydroxyzine Hcl 25 Mg Tablet) 25 mg PO BID PRN PRN Reason: Anxiety Last Admin: 05/29/23 09:52 Dose: 25 mg Ibuprofen (Ibuprofen 600 Mg Tablet) 600 mg PO Q6H PRN PRN Reason: moderate, pain Last Admin: 05/29/23 09:41 Dose: 600 mg Magnesium Hydroxide (Milk Of Magnesia 30 Ml Oral.Susp) 30 ml PO DAILY PRN PRN Reason: Constipation Nicotine (Nicotine 14 Mg Patch.Td24) 14 mg TRANSDERMA DAILY [facility] Last Admin: 05/29/23 08:17 Dose: 14 mg Olanzapine (Olanzapine Odt 10 Mg Tab.Rapdis) 10 mg TRANSLINGU Q6H PRN PRN Reason: agitation Last Admin: 05/27/23 17:24 Dose: 10 mg Risperidone (Risperidone 2 Mg Tablet) 2 mg PO BEDTIME [facility] Last Admin: 05/28/23 20:52 Dose: 2 mg Trazodone HCl (Trazodone Hcl 50 Mg Tablet) 50 mg PO BEDTIME PRN PRN Reason: Insomnia Last Admin: 05/28/23 20:52 Dose: 50 mg Allergies Allergies Allergy/AdvReac Type Severity Reaction Status Date / Time bee pollen [bee stings] Allergy Hives Verified 05/23/23 15:44 promethazine [From Phenergan] AdvReac Seizure Verified 05/23/23 15:44 Assessment & Plan Assessment & Plan (1) Psychosis: Status: Acute Code(s): F29 - Unspecified psychosis not due to a substance or known physiological condition (2) Opioid use disorder, moderate, in early remission, on maintenance therapy, dependence: Status: Acute Code(s): F11.21 - Opioid dependence, in remission Plan Mr. Sarmiento is a 42 year-old male with hx of substance use disorder in early remission, who is not known to our unit. He [facility], a dual [facility] residential treatment program, due to depression and suicidal ideation. As interview goes on, pt is paranoid and hypervigilant. We discussed risks, benefits and alternative treatment options. He is currently on olanzapine, but also reports feeling very sleepy. We discussed lowering gabapentin, given that he is also on suboxone BID and switching to risperidone as it may have less sedation and may be more effective for underlying psychosis and delusions. Collateral information from [facility] where apparently he also presented with psychosis and paranoid delusions. 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 PLAN 1. Admit to M3, CV, 15 minutes checks for safety 2. switch olanzapine to risperidone 2mg po qhs. decrease gabapentin from 600mg po TID to bedtime, adjust as needed. 3. obtain collateral information 4. aftercare planning. 05/29: taper gabapentin; decrease from 600 mg to 400 mg tonight. addiction consult for sublocade request. plan for weds DC. appears far less psychotic than at admission. Reason for continued inpatient stay Substantial Risk for: inability to function and rapid decompensation Time Spent With Patient Time: Total time managing care of this patient today _25___ minutes.
[2023-05-29 20:10] VITALS: BP 149/79; PULSE 78; RESP 18; TEMP 37; O2SAT 98
--- NOTE | 2023-05-29 20:20 | MHC.RECOVSUP ---
? Reason for consult Recovery Support o Current location: [address] o Identified substance use concern: Heroin - Support ? Intervention: o Community resources provided o Harm reduction discussion ? Plan: o Patient to follow up with H after discharge ? Additional information: Met with patient and we talk about recovery and Harm reduction.. We talked about the many different pathway of recovery..
[2023-05-29] MEDS: traZODone HCL 50 MG TABLET PO (21:57)
[2023-05-29] MEDS: risperiDONE 2 MG TABLET PO (21:57)
[2023-05-29] MEDS: Gabapentin 400 MG CAPSULE PO (21:57)
[2023-05-30 06:00] VITALS: BP 130/67; PULSE 69; RESP 16; TEMP 36.2; O2SAT 97
[2023-05-30] MEDS: Buprenorphine/Naloxone 12/3 mg FILM 1 FILM SUBLINGUAL ×2 (08:30→16:59)
[2023-05-30] MEDS: Nicotine 14 MG PATCH.TD24 TRANSDERMA (08:31)
[2023-05-30] MEDS: Ibuprofen 600 MG TABLET PO (08:58)
--- NOTE | 2023-05-30 13:16 | P.DS_ITS ---
DS: Providers Provider Date of Service: 05/30/23 Date of admission: 05/25/23 13:48 Primary care physician: None Physician Consults: 05/23/23 15:46 Consult to Care Team Stat Comment: Reason for consultation: SUicidal 05/27/23 18:44 Addiction Medicine Routine Consulting Provider: Addiction Covering Reason for consultation: Patient asking for change suboxone to methadone Has provider been notified: No DS: Diagnosis Discharge Diagnosis (1) Psychosis: Status: Acute (2) Opioid use disorder, moderate, in early remission, on maintenance therapy, dependence: Status: Acute DS: Medications Discharge Medications Home Medications: Home Medications Medication Instructions Recorded Confirmed cholecalciferol (vitamin D3) 25 25 mcg PO DAILY 05/24/23 05/24/23 mcg (1,000 unit) tablet ibuprofen 800 mg tablet 800 mg PO TID PRN Pain 05/24/23 05/24/23 multivitamin 1 tab PO DAILY 05/24/23 05/24/23 Previous Rx's Medication Instructions Recorded baclofen 10 mg tablet 10 mg PO BID PRN Muscle Spasm 30 05/30/23 days #60 tabs buprenorphine 12 mg-naloxone 3 mg 1 film buccal BID 15 days #30 ea 05/30/23 sublingual film (Suboxone) hydroxyzine HCl 25 mg tablet 25 mg PO BID PRN Anxiety 30 days 05/30/23 #60 tabs nicotine 14 mg/24 hr daily 1 patch transdermal DAILY 30 days 05/30/23 transdermal patch #30 ea risperidone 2 mg tablet 2 mg PO BEDTIME 30 days #30 tabs 05/30/23 trazodone 50 mg tablet 25 mg (1/2 x 50 mg) PO BEDTIME PRN 05/30/23 insomnia 30 days #15 tabs Mental Status Exam Mental Status Exam Narrative: Appearance: wearing casual clothing, good hygiene, in NAD Behavior: no PMA/PMR Speech: clear, normal rate/rhythm/volume, spontaneous TP: linear TC: no delusions or paranoia expressed Mood: up and down. anxious. Affect: constricted, normo-intense, non-labile SI: none HI: none VH/AH: none Insight/judgment: fair x 2. Memory/cog: alert, oriented x 3. Data Data Completed and Pending Completed studies during hospitalization [Text1]: 05/23/23 05/23/23 05/25/23 17:33 17:37 08:11 WBC 4.5 L RBC 4.42 L Hgb 12.7 L Hct 38.1 L MCV 86.2 MCH 28.7 MCHC 33.3 RDW 12.4 Plt Count 208 MPV 9.7 Immature Gran % (Auto) 0.2 Neut % (Auto) 46.0 Lymph % (Auto) 40.9 H [place] % (Auto) 8.2 Eos % (Auto) 3.8 Baso % (Auto) 0.9 Lymph # (Auto) 1.9 [place] # (Auto) 0.4 Eos # (Auto) 0.2 Baso # (Auto) 0.0 Abs Immat Gran (auto) 0.01 Absolute Neuts (auto) 2.1 Absolute Nucleated RBC 0.000 Nucleated RBC % (auto) 0.0 Sodium 142 Potassium 3.5 Chloride 103 Carbon Dioxide 27 Anion Gap 16 BUN 10 Creatinine 0.88 Estim Creat Clear Calc 121.3 Estimated GFR > 60 Random Glucose 155 H Fasting Glucose Estimat Average Glucose Hemoglobin A1c % Calcium 9.4 Total Bilirubin 0.6 AST 25 ALT 29 Alkaline Phosphatase 67 Total Protein 6.5 Albumin 4.2 Triglycerides Cholesterol LDL Cholesterol, Calc HDL Cholesterol Vitamin B12 TSH Urine Color Yellow Urine Appearance Clear Urine pH 6.0 Ur Specific [place] 1.015 Urine Protein Negative Urine Glucose (UA) Negative Urine Ketones Negative Urine Blood Negative Urine Nitrite Negative Ur Leukocyte Esterase Negative Urine Opiates Screen Not Detected Urine Fentanyl Screen Not Detected Ur Barbiturates Screen Not Detected Ur Phencyclidine Scrn Not Detected Ur Amphetamines Screen Not Detected U Benzodiazepines Scrn Not Detected Urine Cocaine Screen Not Detected U Marijuana (THC) Screen Not Detected Ethyl Alcohol < 10 COVID-19 ([facility]) Negative Negative COVID-19 Clin Com See Note See Note 05/26/23 08:21 WBC RBC Hgb Hct MCV MCH MCHC RDW Plt Count MPV Immature Gran % (Auto) Neut % (Auto) Lymph % (Auto) [place] % (Auto) Eos % (Auto) Baso % (Auto) Lymph # (Auto) [place] # (Auto) Eos # (Auto) Baso # (Auto) Abs Immat Gran (auto) Absolute Neuts (auto) Absolute Nucleated RBC Nucleated RBC % (auto) Sodium 141 Potassium 4.2 Chloride 106 Carbon Dioxide 26 Anion Gap 13 BUN 14 Creatinine 0.85 Estim Creat Clear Calc 125.9 Estimated GFR > 60 Random Glucose Fasting Glucose 84 Estimat Average Glucose 105 Hemoglobin A1c % 5.3 Calcium 9.5 Total Bilirubin 0.4 AST 23 ALT 29 Alkaline Phosphatase 69 Total Protein 6.9 Albumin 4.3 Triglycerides 166 H Cholesterol 176 LDL Cholesterol, Calc 82 HDL Cholesterol 61 Vitamin B12 715 TSH 2.66 Urine Color Urine Appearance Urine pH Ur Specific [place] Urine Protein Urine Glucose (UA) Urine Ketones Urine Blood Urine Nitrite Ur Leukocyte Esterase Urine Opiates Screen Urine Fentanyl Screen Ur Barbiturates Screen Ur Phencyclidine Scrn Ur Amphetamines Screen U Benzodiazepines Scrn Urine Cocaine Screen U Marijuana (THC) Screen Ethyl Alcohol COVID-19 ([facility]) COVID-19 Clin Com DS: Summary Hospital Course Hospital Course: per 05/26 admission note: Mr. Sarmiento is a 42 year-old male with hx of substance use and psychosis. He initially presented from dual [facility] reporting increase depression and suicidal ideation. Utox was negative. On the unit, pt presented as more hypervigilant irritable that appear to be related to underlying paranoid delusions. Pt reports he does not feel safe here, feels this unit is too open and anyone can come in. He does not know if he can trust people here and the medications, although same names, look different. He reports feeling weird which he also suspects is because of either the medications or food that he has been given here. He signed a 3 day notice. He denies SI/HI. He reports he feels comfortable returning to the program if they do accept him back. He has been there just a few days. Past Psychiatric History: Inpt: pt reports many in the past. He was recently discharged from [place], [place] on 05/19/23. OP: none Past trials: olanzapine, vraylar Medical Evaluation Reviewed: Yes [facility] Social History: not working. He is originally from [place] Substance History: opioid use on and off for several years. He is currently on s uboxone. He reports he has not used this month. Trauma History: did not want to talk about it Precis: Mr. Sarmiento is a 42 year-old male with hx of substance use disorder in early remission, who is not known to our unit. He initially presented from [facility], a dual dx residential treatment program, due to depression and suicidal ideation. As interview goes on, pt is paranoid and hypervigilant. We discussed risks, benefits and alternative treatment options. He is currently on olanzapine, but also reports feeling very sleepy. We discussed lowering gabapentin, given that he is also on suboxone BID and switching to risperidone as it may have less sedation and may be more effective for underlying psychosis and delusions. Collateral information from [place] where apparently he also presented with psychosis and paranoid delusions. 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 05/26: Admit to M3, CV, 15 minutes checks for safety. switch olanzapine to ri speridone 2mg po qhs. decrease gabapentin from 600mg po TID to bedtime, adjust as needed. obtain collateral information. aftercare planning. 05/27: The nursing staff reported the patient signed a 3 day notice reports that he is anxiety and depression is up and down. On interview the patient denies new symptoms, compliant with current treatment. 05/28: The nursing staff reported the patient signed a 3 day notice he reports some anxiety. His mood had been better. He has been talking about the possibility of different treatment options. On interview the patient denies new symptoms, he is willing to work as an outpatient 05/29: taper gabapentin; decrease from 600 mg to 400 mg tonight. addiction consult for sublocade request. plan for weds DC. appears far less psychotic than at admission. 05/30: calm, cooperative. meds reviewed, reconciled, prescribed. discharging to [facility] tomorrow. 05/31: stable. discharged as per plan. Time Spent with Patient Time attestation: Total time managing care of this patient today ____ minutes. Time spent: Greater than 30 minutes Discharge Plan Discharge Anticipated Discharge Date/Time: 05/31/23 10:00 Patient Disposition: Home, Self-Care Discharge Diagnosis: Schizophrenia, Paranoid Type Opioid Use Disorder, Partial Agonist Therapy Referrals: Therapy & Psychiatry [Other] - 1 Week (*[facility] has walk in hours on Tuesdays and between the hours of 10am and 12pm. You can walk in and tell them that you are interested in outpatient mental health treatment. ) [facility] [Provider Group] - 1 Week Discharge Medications: New risperidone 2 mg Tablet 2 mg PO BEDTIME 30 Days Qty: 30 0RF buprenorphine-naloxone 12-3 mg film 1 film sublingual BID 15 Days Qty: 30 0RF Continued multivitamin Tablet 1 tab PO DAILY ibuprofen 800 mg Tablet 800 mg PO TID PRN (Reason: Pain) cholecalciferol (vitamin D3) 25 mcg (1,000 unit) Tablet 25 mcg PO DAILY nicotine 14 mg/24 hr Patch 24 Hour 1 patch TRANSDERMAL DAILY 30 Days Qty: 30 0RF baclofen 10 mg Tablet 10 mg PO BID PRN (Reason: Muscle Spasm) 30 Days Qty: 60 0RF hydroxyzine HCl 25 mg Tablet 25 mg PO BID PRN (Reason: Anxiety) 30 Days Qty: 60 0RF Changed trazodone 50 mg Tablet 25 mg PO BEDTIME PRN (Reason: insomnia) 30 Days Qty: 15 0RF Discontinued gabapentin 600 mg Tablet 600 mg PO TID olanzapine 5 mg Tablet 5 mg PO DAILY pantoprazole 40 mg Tablet,Delayed Release (Dr/Ec) 40 mg PO DAILY buprenorphine-naloxone [Suboxone] 12-3 mg Film 1 film BUCCAL BID Discharge Orders: Discharge Order (Routine); Ordered 05/31/23 Ordered By: Prabhjot Sarmiento Diet: Advance to usual diet Activity on Discharge: As tolerated Stand Alone Forms: Patient Portal Discharge page, Community Support Care Plan Goals: remain safe, stable, and sober in the outpatient treatment setting Health Concerns: none Plan of Treatment: take medications as prescribed, attend appointments as scheduled Assessment: not at imminent risk of harm to self or others Discharge Date/Time: 05/31/23 14:35
[2023-05-30 20:00] VITALS: BP 141/76; PULSE 90; RESP 16; TEMP 37; O2SAT 99
[2023-05-30] MEDS: Gabapentin 400 MG CAPSULE PO (21:00)
[2023-05-31 07:18] VITALS: BP 109/66; PULSE 61; RESP 14; TEMP 36.3; O2SAT 96
[2023-05-31] MEDS: Buprenorphine/Naloxone 12/3 mg FILM 1 FILM SUBLINGUAL (08:50)
[2023-05-31] MEDS: Nicotine 14 MG PATCH.TD24 TRANSDERMA (08:50)
[2023-05-31] MEDS: Ibuprofen 600 MG TABLET PO (12:07)
[2023-05-31] MEDS: hydrOXYzine HCL 25 MG TABLET PO (12:07)
== END 2023-05-31 14:35 | disposition home or self-care (01) | DRG 750 ==
LOC: HO.ED 05-24 12:40 → HO.PADLT16 05-25 14:05
PROVIDERS: Physician Assistant; Social Worker; Admitting Provider Psychiatry & Neurology Psychiatry; Emergency Provider Emergency Medicine; Visit Provider Psychiatry & Neurology Psychiatry
DX: F20.0 Paranoid schizophrenia (principal); R45.851 Suicidal ideations; F11.20 Opioid dependence, uncomplicated; F17.210 Nicotine dependence, cigarettes, uncomplicated; Z20.822 Contact with and (suspected) exposure to COVID-19; Z71.6 Tobacco abuse counseling; Z79.899 Other long term (current) drug therapy
CPT/HCPCS: 36415; 80053; 80061; 80307; 81003; 82607; 83036; 84443; 85025; 87635; 93005; 99285; S9485

== ENCOUNTER → 2023-05-25 08:01 | Outpatient (BNV) | payer OTHER, SELFPAY | PROVIDERS: Emergency Provider Emergency Medicine; Visit Provider Internal Medicine Cardiovascular Disease | DX: R45.851 Suicidal ideations (principal) | CPT/HCPCS: 93010 ==

== ENCOUNTER → 2023-05-25 13:48 | Outpatient (BNV) | payer MEDICAID, SELFPAY | PROVIDERS: Admitting Provider Psychiatry & Neurology Psychiatry; Emergency Provider Emergency Medicine; Visit Provider Psychiatry & Neurology Psychiatry | DX: F29 Unspecified psychosis not due to a substance or known physiological condition (principal); F11.21 Opioid dependence, in remission | CPT/HCPCS: 90792; 99231; 99232; 99238 ==